=== PATIENT | female | born 1990 | race Caucasian/White ===

== ENCOUNTER 2020-11-11 16:01 | Emergency (ER) | payer OTHER, SELFPAY ==
[2020-11-11 16:07] VITALS: BP 138/86; PULSE 83; RESP 16; TEMP 36.6; O2SAT 100
--- NOTE | 2020-11-11 16:28 | ED.GENADULT ---
HPI - General Adult General Chief complaint: Skin/Abscess/Foreign Body Stated complaint: allergic reaction, keflex Time Seen by Provider: 11/11/20 16:03 Source: patient and RN notes reviewed Mode of arrival: ambulatory Limitations: no limitations History of Present Illness HPI narrative: Patient is a 30-year-old female who presents to emergency department for evaluation of diffuse rash that began after starting to take Keflex for cellulitis on the right medial knee patient notes diffuse urticarial rash went to [facility] today had a steroid shot was sent home with oral steroid prescription patient also took Benadryl. Patient notes itching denies any respiratory symptoms URI symptoms or other complaints presents in no distress Related Data Allergies Allergy/AdvReac Type Severity Reaction Status Date / Time Sulfa (Sulfonamide Allergy Mild Rash Verified 11/11/20 16:10 Antibiotics) cephalexin [From Keflex] Allergy Rash Verified 11/11/20 16:10 Review of Systems Review of Systems: All systems reviewed & are unremarkable except as noted in HPI and below PMFSH Social History Social History (Updated 11/11/20 @ 16:29 by Vernon Calloway PA-C) Smoking status: Never smoker Exam Narrative: GENERAL: Well-appearing, well-nourished, and in no acute distress. HEAD: Normocephalic, atraumatic. EYES: PERRLA and EOMI. ENT: Nares clear, no rhinorrhea or epistaxis. Mucous membranes moist. No angioedema in the oropharynx. NECK: Supple. No adenopathy or masses. No stridor CHEST: Clear to auscultation. No respiratory distress. No wheezes rales or rhonchi HEART: Regular rate and rhythm. No murmur heard. Normal peripheral pulses. ABDOMEN: Soft, nontender, nondistended EXTREMITIES: Normal range of motion. No edema. SKIN: Warm, dry, diffuse urticarial rash NEURO: No focal deficits. Alert and oriented x3. Cranial nerves II through XII grossly intact PSYCH: Normal mood and affect. Course Course Emergency Course: Patient in the room no distress presented with urticarial rash will be discharged home provided with medications to take for symptoms given follow-up with primary care advised to discontinue taking all antibiotics as the area where she had cellulitis is no longer present and does not require antibiotics at this time she is afebrile nontoxic-appearing no distress. Vital Signs Vital signs: Vital Signs Temperature 97.8 F 07/28/21 16:07 Pulse Rate 83 11/11/20 16:07 Respiratory Rate 16 11/11/20 16:07 Blood Pressure 138/86 11/11/20 16:07 Pulse Oximetry 100 11/11/20 16:07 Temperature 97.8 F 11/11/20 16:07 Pulse Rate 83 11/11/20 16:07 Respiratory Rate 16 11/11/20 16:07 Blood Pressure 138/86 11/11/20 16:07 Pulse Oximetry 100 11/11/20 16:07 Medical Decision Making MDM Narrative Medical decision making narrative: Patient patient presented with rash ABCs and vital signs intact and stable felt appropriate for outpatient reevaluation provided with reasons to return Vital Signs Vital Signs: Vital Signs Temperature 97.8 F 11/11/20 16:07 Pulse Rate 83 11/11/20 16:07 Respiratory Rate 16 11/11/20 16:07 Blood Pressure 138/86 11/11/20 16:07 Pulse Oximetry 100 11/11/20 16:07 Temperature 97.8 F 11/11/20 16:07 Pulse Rate 83 11/11/20 16:07 Respiratory Rate 16 11/11/20 16:07 Blood Pressure 138/86 11/11/20 16:07 Pulse Oximetry 100 11/11/20 16:07 Discharge Plan Discharge Clinical Impression: Allergic reaction Patient Disposition: Home, Self-Care Condition: Stable Instructions: Antibiotic Form, Allergies (ED) Additional Instructions: Follow up with your primary care provider within 3-5 days. Go to ER for shortness of breath, difficulty breathing, chest pain, fever/chills, weakness, nauseau/vomitting, tongue swelling or throat tightening etc. or any other concerns. Avoid any heat Take any prescribed medications as directed. Stay well-hydrated If you do
[2020-11-11] MEDS: hydrOXYzine HCL 25 MG TABLET 50 MG PO (17:14)
[2020-11-11] MEDS: FAMOTIDINE 20 MG TABLET PO (17:14)
[2020-11-11 17:30] VITALS: BP 133/85; PULSE 88; RESP 16; O2SAT 100
== END 2020-11-11 17:31 | disposition home or self-care (01) ==
PROVIDERS: Emergency Provider Emergency Medicine; PCP Orthopaedic Surgery Orthopaedic Trauma
DX: T78.40XA Allergy, unspecified, initial encounter (principal)
CPT/HCPCS: 99283; A9270